=== PATIENT | male | born 1985 | race African-American/Black ===

== ENCOUNTER 2016-09-11 16:21 | Emergency (ER) | payer SELFPAY ==
[2016-09-11 13:40] LABS: BASOPHILS 0.2 %; EOSINOPHILS 0.1 %; EOSINOPHILS ABSOLUTE 0.01 10/3/uL (0.0-0.53); HEMATOCRIT 35.4 % (40.0-51.0); HEMOGLOBIN 10.9 g/dL (13.6-17.8); IMMATURE GRANULOCYTES 0.3 %; IMMATURE GRANULOCYTES ABSOLUTE 0.04 10/3/uL (0.0-0.11); LYMPHOCYTES 13.1 %; LYMPHOCYTES ABSOLUTE 1.92 10/3/uL (0.67-4.30); MEAN PLATELET VOLUME 8.7 fL (9.2-13.0); MONOCYTES 12.1 %; MONOCYTES ABSOLUTE 1.78 10/3/uL (0.21-1.20); NEUTROPHILS 74.2 %; NEUTROPHILS ABSOLUTE 10.91 10/3/uL (2.02-8.40); RBC DISTRIBUTION WIDTH 19.7 % (12.0-16.0); RED CELL COUNT 4.83 10/6/uL (4.7-6.1)
[2016-09-11 13:42] LABS: ER CBC TAT 0 Hrs 11 Mins; MANUAL DIFF NO %; MEAN CORPUS HGB CONC 30.8 g/dL (32.0-36.0); MEAN CORPUSCULAR HEMOGLOB 22.6 pg (26.0-34.0); MEAN CORPUSCULAR VOLUME 73.3 fL (80-100); PLATELET COUNT 411 10/3/uL (150-400); WHITE BLOOD CELLS 14.7 10/3/uL (4.5-10.5)
[2016-09-11 13:43] LABS: BASOPHILS ABSOLUTE 0.03 10/3/uL (0.0-0.16)
[2016-09-11 13:57] LABS: A/G RATIO 0.4 (0.7-1.9); ALBUMIN 2.8 G/DL (3.5-5.0); ALKALINE PHOSPHATASE 108 U/L (45-117); BUN (BLOOD UREA NITROGEN) 18 MG/DL (6-23); CALCIUM, SERUM 8.9 MG/DL (8.5-10.4); CHLORIDE, SERUM 97 MMOL/L (96-112); CO2 (CARBON DIOXIDE) 27 MMOL/L (24-34); GFR AFRICAN AMERICAN 48 ML/MIN (>=60); GFR NON AFRICAN AMERICAN 41 ML/MIN (>=60); GLOBULIN 6.8 G/DL (2.5-4.1); GLUCOSE, SERUM 99 MG/DL (60-99); POTASSIUM, SERUM 3.6 MMOL/L (3.5-5.3); SGOT(AST) 16 U/L (5-40); SGPT(ALT) 14 U/L (5-65); SODIUM, SERUM 132 MMOL/L (135-148); TOTAL BILIRUBIN 0.9 MG/DL (0-1.2); TOTAL PROTEIN 9.6 G/DL (6.0-8.5)
[2016-09-11 14:13] LABS: PLATELET ESTIMATE SLT INC (ADEQUATE)
[2016-09-11 14:14] LABS: ANISOCYTOSIS 1+ (5-10/OIF) (0-5/OIF)
[~2016-09-11 16:21] MED LIST: *DENIES
== END 2016-09-11 18:05 | disposition left against medical advice (07) ==
LOC: ER 16:21
PROVIDERS: Hospitalist
DX: F50.9 Eating disorder, unspecified (principal); Z53.21 Procedure and treatment not carried out due to patient leaving prior to being seen by health care provider
CPT/HCPCS: 71020; 80053; 81001; 85025; 87040

== ENCOUNTER 2017-01-26 14:07 | Emergency (ER) | payer SELFPAY | END 2017-01-26 17:49 | disposition home or self-care (01) | LOC: ER 14:07 | PROC: 0H98XZZ Drainage of Buttock Skin, External Approach (ICD-10-PCS; principal; 2017-01-26) | DX: L02.31 Cutaneous abscess of buttock (principal); F17.200 Nicotine dependence, unspecified, uncomplicated | CPT/HCPCS: 96372; 99283; J1170 ==